=== PATIENT | male | born 1985 | race Caucasian/White ===

== ENCOUNTER 2021-04-27 13:26 | Emergency (ER) | payer MEDICAID, OTHER ==
[~2021-04-27] VITALS: Ht 180.3 cm; Wt 81.6 kg
[2021-04-27] MEDS ORDERED: IV NORMAL SALINE 1000 ML BAG IV ONE (13:30)
--- NOTE | 2021-04-27 13:31 | NUR ---
PT REFUSED HEPLOCK, BLOOD DRAW AND EKG, REQUESTING ONLY COVD TEST TO BE DONE.
[2021-04-27] MEDS ORDERED: IBUPROFEN 600 MG TABLET PO ONE (13:45)
== END 2021-04-27 14:05 | disposition left against medical advice (07) ==
LOC: ER 13:26
DX: J11.1 Influenza due to unidentified influenza virus with other respiratory manifestations (principal); Z20.822 Contact with and (suspected) exposure to COVID-19; R00.0 Tachycardia, unspecified
CPT/HCPCS: 93005; A4663; J7030